=== PATIENT | female | born 1995 | race Two or more races ===

== ENCOUNTER 2020-07-20 12:12 | Emergency (ER) | payer BC, MEDICAID ==
[~2020-07-20] VITALS: Ht 157.5 cm; Wt 90.7 kg
[2020-07-20 13:15] LABS: Basophils # (auto) 0.1 10 ^3/uL (0-0.2); Eosinophils # (auto) 0.2 10 ^3/uL (0-0.8); Eosinophils % (auto) 2.5 % (0.0-7.0); Hematocrit 34.3 % (36.0-46.0); Hemoglobin 11.9 g/dL (12.2-16.2); Lymphocytes # (auto) 2.6 10 ^3/uL (0.4-5.4); Lymphocytes % (auto) 32.9 % (10.0-50.0); Mean Corpuscular Hgb Conc. 34.6 g/dL (32.0-36.0); Mean Corpuscular Volume 86.7 fL (80.0-100.0); Monocytes # (auto) 0.5 10 ^3/uL (0-1.3); Monocytes % (auto) 5.8 % (0.0-12.0); Neutrophils # (auto) 4.5 10 ^3/uL (1.6-8.6); Neutrophils % (auto) 57.8 % (37.0-80.0); Nucleated Red Blood Cells % 0.1 %; Platelet Count (auto) 336 10^3/uL (140-450); Red Blood Cells 3.96 10^6/uL (4.0-5.20); Red Cell Distribution Width 13.2 % (11.8-14.3); White Blood Cell 7.8 10^3/uL (4.4-10.8)
[2020-07-20] MEDS ORDERED: SODIUM CHLORIDE 0.9% 1,000 ML IV ONE (13:15)
[2020-07-20] MEDS ORDERED: medroxyPROGESTERone ACETATE 5 MG TAB PO ONE (13:15)
[2020-07-20 13:46] LABS: Partial Thromboplastin Time 25.9 sec (23.0-31.2)
[2020-07-20 13:54] LABS: Urine Bacteria NONE SEEN /hpf (None Seen); Urine WBC 7413 /hpf (0 - 5)
[2020-07-20 13:57] LABS: Urine Specific Gravity 1.025 (1.001-1.035)
[2020-07-20 17:20] VITALS: BP 159/72
== END 2020-07-20 17:29 | disposition home or self-care (01) ==
LOC: ER 12:12
DX: N93.9 Abnormal uterine and vaginal bleeding, unspecified (principal); N88.8 Other specified noninflammatory disorders of cervix uteri
CPT/HCPCS: 36415; 76830; 76856; 81001; 84702; 85025; 85610; 85730; 86850; 86900; 86901; 96360; 96361; 99284; J7030